=== PATIENT | male | born 1975 | race Caucasian/White ===

== ENCOUNTER 2022-10-16 20:22 | Emergency (ER) | payer OTHER, SELFPAY ==
[2022-10-16 20:58] VITALS: BP 137/86; PULSE 68; RESP 18; TEMP 37; O2SAT 99; BMI 25.8
[2022-10-16 21:13] VITALS: BP 146/75; PULSE 68; RESP 20; O2SAT 98
--- NOTE | 2022-10-16 21:23 | PC.NURSE ---
patient given ice pack for pain
--- NOTE | 2022-10-16 21:42 | ED.DENTAL ---
HPI - Dental/Oral General Chief complaint: Dental/Oral/Mouth Injury/Pain Stated complaint: Tooth Infection Time Seen by Provider: 10/16/22 21:26 History of Present Illness HPI Narrative: This 47-year-old male comes in with severe dental pain in the left posterior upper tooth. He states that he thinks he cracked this tooth or fractured at a couple months ago but now reports severe pain over the past day or 2. He has not been to a dentist regarding this. Related Data Home Medications Medication Instructions Recorded Confirmed ibuprofen 10/16/22 Previous Rx's Medication Instructions Recorded cephalexin 500 mg capsule 500 mg PO TID 7 days #21 caps 10/16/22 Allergies Allergy/AdvReac Type Severity Reaction Status Date / Time No Known Drug Allergies Allergy Verified 10/16/22 21:02 Review of Systems Status of ROS: Reports: 10 or more systems reviewed and unremarkable except as noted in History and below Narrative: Constitutional: No fevers, no weight gain or loss. Eyes: No discharge. No vision changes. HENT: No congestion, no sore throat, no ear pain. Dental pain as described above. Cardiovascular: No chest pain, no palpitations. Respiratory: No shortness of breath, no wheezes, no cough. Gastrointestinal: No abdominal pain, no vomiting, no diarrhea. Genitourinary: No dysuria, no hematuria. Musculoskeletal: Normal range of motion. Skin: No rashes, no pruritis. Neurological: No dizziness, weakness, sensory change, speech change. Endo/Heme/Allergies: No bruising or bleeding. No polydipsia. Pysch: no suicidality, no anxiety, no insomnia. All other systems reviewed and are negative. [facility] Social History Smoking Status: Former smoker Do you use any of these nicotine containing products: Vaping Products How often do you have a drink containing alcohol: never AUDIT-C Alcohol total score: 0 Non-prescribed substance use: marijuana (any form) Exam Narrative: Exam Narrative: Constitutional: Well-developed, well-nourished, no acute distress. HEENT: Normocephalic, atraumatic. Oral exam shows good dentition and no sign of obvious dental fracture or abscess. Neck: Normal range of motion. Nontender. Supple. Heart: Intact distal pulses. Lungs: No chest discomfort. No wheezes, rhonchi, or rales. Abdomen: Nontender. Back: Normal range of motion. Extremities: Normal range of motion. No injury. Skin: Intact. No rash. Warm. No erythema or pallor. Neurologic: No altered sensation. No weakness. Alert and oriented. Psychiatric: No suicidality. No anxiety or depression. No insomnia. Nursing notes and vitals signs are reviewed. Const: Vital Signs, click to edit/add: Vital Signs - 24 hr 10/16/22 20:58 10/16/22 21:13 Temperature 98.6 F Pulse Rate [Left P ulse Oximeter] 68 68 Respiratory Rate 18 20 [facility] 137/86 146/75 H Pulse Oximetry 99 98 Oxygen Delivery Me thod Room Air Room Air Course Vital Signs Vital signs: Initial Vital Signs Temperature 98.6 F 10/16/22 20:58 Temperature Source Oral 10/16/22 20:58 Pulse Rate 68 10/16/22 20:58 Respiratory Rate 18 10/16/22 20:58 Blood Pressure 137/86 10/16/22 20:58 Blood Pressure Mean 103 10/16/22 20:58 Blood Pressure Position Sitting 10/16/22 20:58 Pulse Oximetry 99 10/16/22 20:58 Oxygen Delivery Method 10/16/22 20:58 Vital Signs Temperature 98.6 F 10/16/22 20:58 Pulse Rate 68 10/16/22 20:58 Respiratory Rate 18 10/16/22 20:58 Blood Pressure 137/86 10/16/22 20:58 Pulse Oximetry 99 10/16/22 20:58 Oxygen Delivery Method 10/16/22 20:58 Temperature 98.6 F 10/16/22 20:58 Pulse Rate 68 10/16/22 21:13 Respiratory Rate 20 10/16/22 21:13 Blood Pressure 146/75 H 10/16/22 21:13 Pulse Oximetry 98 10/16/22 21:13 Oxygen Delivery Method 10/16/22 21:13 MDM - Dental/Oral MDM Narrative Medical decision making narrative: This patient understands that he needs to see a dentist for and more definitive diagnosis and treatment of his dental pain. I did offer a dental nerve block which the patient agreed to. He did receive injection of Marcaine 0.25% for relief of his pain. He also received prescription for Toradol, Keflex, and Medrol Dosepak. Discharge Plan Discharge Clinical Impression: Toothache Patient Disposition: Home, Self-Care Condition: Unchanged Additional Instructions: Follow-up with dentist as soon as possible. Take medication as directed. Return if worsening symptoms happen. Prescriptions: New cephalexin 500 mg capsule 500 mg PO TID 7 Days Qty: 21 0RF No Action ibuprofen Stand Alone Forms: [employer] Info Instructions
[2022-10-16 22:28] VITALS: BP 112/63; PULSE 55; RESP 18; O2SAT 98
== END 2022-10-16 22:38 | disposition home or self-care (01) ==
LOC: ED 21:54
PROVIDERS: Emergency Provider Emergency Medicine Emergency Medical Services
DX: K08.89 Other specified disorders of teeth and supporting structures (principal)
CPT/HCPCS: 99283; 99284